=== PATIENT | female | born 1975 | race African-American/Black ===

== ENCOUNTER 2021-05-24 09:30 | Emergency (ER) | payer SELFPAY ==
[~2021-05-24] VITALS: Ht 170.2 cm; Wt 113.9 kg
[2021-05-24] MEDS ORDERED: CLIN50GE TP (10:28)
--- NOTE | 2021-05-24 10:29 | PHYS DOC ---
Past Medical History Past Medical History: Asthma Past Surgical History: No Surgical History Smoking Status: Current Every Day Smoker Alcohol Use: None Drug Use: None General Adult EDM: Chief Complaint: ABSCESS HPI: HPI: 45-year-old female presents to the emergency department complaining of a lesion and boil to the left armpit that has been present for several days that has been gradually increasing in size. She has had a lesion similar to this in the past. She notes increased pain with movement of her arm, palpation of the area. She denies any recent antibiotic use or any further systemic complaints including fever chills nausea vomiting diarrhea abdominal pain chest pain shortness of breath or any further symptoms. Review of Systems: Review of Systems: ROS otherwise negative except for what was mentioned in HPI Heart Score: C/O Chest Pain: No Allergies: Allergies: Allergies Coded Allergies Type Severity Reaction Last Updated Verified No Known Drug Allergies 01/07/15 No Physical Exam: PE: Constitutional: No acute distress, non-toxic appearance. HENT: Atraumatic, bilateral external ears normal, nose normal. Neck: Normal range of motion, supple, no stridor. Cardiovascular: Heart rate regular rhythm. 2+ radial pulses Lungs & Thorax: No respiratory distress, symmetrical expansion. Skin: Hidradenitis suppurativa lesion is apparent to the left axilla area, chronic appearing, tender to palpation, no surrounding erythema, no crepitus Extremities: No tenderness, no cyanosis, ROM intact, no edema. Neurologic: Alert and oriented X 3, normal motor function, normal sensory function, no focal deficits noted. Non ataxic gait. GCS 15. Psychologic: Affect normal, judgment normal, mood normal. Current Patient Data: Vital Signs: Vital Signs Date Time Temp Pulse Resp B/P (MAP) Pulse Ox O2 Delivery O2 Flow Rate FiO2 05/24/21 10:17 98.9 103 20 131/77 (95) 96 Room Air 98.9 Course & Med Decision Making: Course & Med Decision Making Patient with clinical diagnosis of vaginitis suppurativa, we will treat the patient with clindamycin topical and avoid incision and drainage due to risk for scarring. Patient was advised to follow-up with dermatology and primary care for further treatment. Tachycardia likely 2/2 pain. Departure Departure Impression: Primary Impression: Hidradenitis suppurativa of left axilla Disposition: 01 HOME / SELF CARE / HOMELESS Condition: STABLE Referrals: NO PCP (PCP) Patient Instructions: Hidradenitis Suppurativa, Sweat Gland Abscess Additional Instructions: You are seen in the emergency department and diagnosed with hidradenitis suppurativa which will require use of a topical antibiotic to treat the infection. Please follow-up with a pad cutter as well as a primary care doctor for further treatment of this. You have been given a prescription for clindamycin. This medicine is an antibiotic for hidradenitis suppurativa please take as prescribed for the full course of the prescription. Do not stop taking the medicine early if you feel better, as this could risk building antibiotic resistance and may put you at risk for a more harmful infection later. The most common side effect of antibiotics include nausea, vomiting, diarrhea and rash. Please come to be evaluated if you develop any symptoms that are concerning to you. One major adverse effect of antibiotics is the development of a diarrheal illness called c. diff colitis, if you develop an excessive amount of diarrhea or are concerned about this please return to the ER or consult a physician. You were seen in the emergency department and your health condition was deemed not to require admission to the hospital. It is important to realize that we can only evaluate you during the time that you are in her department. Occasionally health conditions can worsen upon leaving the emergency department. If this were to happen, please return to and allow us the opportunity to reevaluate you. It is a pleasure to take care of your health needs. Return to the ER if your symptoms worsen, do not improve, or if you develop additional symptoms that are concerning to you Scripts Clindamycin Phos/Benzoyl Perox (Clind pH-Benzoyl Kwame 1.2-2.5%) 50 Gm Gel.w.pump 50 GM TP DAILY for 10 Days, #500 GM Prov: PHILIP MAHER DO 05/24/21 PHILIP MAHER DO May 24, 2021 10:29
[2021-05-24] MEDS: HYDROcodone/APAP 5/325MG 1 TAB TABLET PO ONE (10:34)
[2021-05-24 10:35] VITALS: BP 122/85
== END 2021-05-24 10:40 | disposition home or self-care (01) ==
LOC: ER 09:30
DX: L73.2 Hidradenitis suppurativa (principal); J45.909 Unspecified asthma, uncomplicated; F17.200 Nicotine dependence, unspecified, uncomplicated
CPT/HCPCS: 99283